=== PATIENT | male | born 1975 | race Caucasian/White ===

== ENCOUNTER → 2017-10-06 | Outpatient (CLI) | payer BC ==
--- NOTE | 2017-10-06 12:40 | RADIOLOGY REPORT (SQ) ---
EXAM DESCRIPTION: CT SOFT TISSUE NECK WITHOUT COMPLETED DATE/TIME: 10/06/2017 7:23 am REASON FOR STUDY: NEOPLASM OF UNCERTAIN BEHAVIOR OF CONNECTIVE AND OTHER SOFT TISSUE (D48.1) D48.1 NEOPLASM OF UNCERTAIN BEHAVIOR OF CONNCTV/SOFT TISS COMPARISON: None. TECHNIQUE: Noncontrast scanning from skull base through lung apices with review of bone, soft tissue and lung windows. Reconstructed coronal and sagittal MPR images reviewed. All images stored on PAC S. All CT scanners at this facility use dose modulation, iterative reconstruction, and/or weight based d osing when appropriate to reduce radiation dose to as low as reasonably achievable (ALARA). [facility]: Dose Right [facility]: CareDose [facility]: Dose Right [facility]: Teradose 4D [facility]: [employer] RADIATION DOSE: 21.6 mGy. LIMITATIONS: None. FINDINGS: SKULL BASE: In the posterior fossa, an 8 cm transverse by 4 cm AP arachnoid cyst is presen t, of with mild mass effect on the right cerebellar hemisphere. No posterior fossa midline shift. N o hydrocephalus. MAJOR SALIVARY GLANDS: No solid or cystic masses. No inflammatory changes. LYMPHADENOPATHY: No adenopathy. MUCOSAL MASSES OR ASYMMETRY: No mucosal masses or asymmetry. LARYNX/CORDS: No abnormal findings. LUNG APICES: Clear. BONES: Intact. THYROID: Normal size. No masses. PARANASAL SINUSES: Clear. OTHER: No other significant finding. IMPRESSION: NO SIGNIFICANT FINDING IN THE SOFT TISSUES OF THE NECK. INCIDENTAL FINDING OF A BENIGN APPEARING RIGHT POSTERIOR FOSSA ARACHNOID CYST TECHNICAL DOCUMENTATION: JOB ID: [id number] Quality ID # [id number]: Final reports with documentation of one or more dose reduction techniques (e.g., Au tomated exposure control, adjustment of the mA and/or kV according to patient size, use of iterative reconstruction technique) 2010 [employer]- All Rights Reserved
== END ==
LOC: RAD 07:08
PROVIDERS: ATTEND Family Medicine
DX: D48.1 Neoplasm of uncertain behavior of connective and other soft tissue (principal)
CPT/HCPCS: 70490

== ENCOUNTER 2018-10-25 13:12 | Emergency (ER) | payer BC ==
--- NOTE | 2018-10-25 14:40 | ER Document Report ---
ED GI/ - General Chief Complaint: Urinary Problem Stated Complaint: BACK PAIN Time Seen by Provider: 10/25/18 14:33 Mode of Arrival: Ambulatory Information source: Patient Notes: Patient is a 43-year-old male comes emergency room complaining of left flank pain and hematuria. Patient states that approximately 2 months ago he had onset of some hematuria. He went to his primary care doctor and they did a urine sample and sent for pathology and there was no blood in his urine. He also states that the Friday before they were out eating dinner when he had a sudden onset of severe left flank pain severe abdominal pain on the left side he could not find a position of comfort became slightly nauseated. He had his drive in the left head for a walk-in clinic. When he got to the clinic patient attempted to go inside and was 2:05 PM in the clinic closed at 2 PM. He got in the car to go to another clinic and on the way there the pain subsided so they decided not to go anywhere. He has had intermittent episodes ever since then of discomfort and having difficult time finding a position of comfort but it would last a short time and go away. This morning he had the same type of a presentation he now has the urge to like he has to urinate and when he goes eats only small amounts. He states that when he was [facility] and went to the restroom he ended up seeing blood in his underwear. The pain has gotten slightly better but he decided since there was now carmela blood in his underwear that he needed to have it checked out. He did state with the onset of pain he became somewhat sweaty mildly nauseous. He denies any previous history of kidney stones or urologic problems. He does state that he has had a history of genital herpes and genital warts but nothing has been active for quite some time. TRAVEL OUTSIDE OF THE [place] IN LAST 30 DAYS: No - HPI Patient complains to provider of: Abdominal pain, Dysuria, Flank pain, Hematuria , Urinary retention. No: Testicular pain, Vomiting Onset: This morning Timing/Duration: Sudden, Persistent, Worse Quality of pain: Sharp, Throbbing Severity at maximum: Severe Severity in ED: Moderate Pain Level: 3 Location: LLQ, Left flank Adult Front & Back Diagram: 1 - Area of discomfort to palpation 2 - Area of discomfort to percussion Sexual history: Active. denies: STD exposure Associated symptoms: Nausea, Urinary hesitancy, Urinary frequency, Urinary retention Exacerbated by: Denies Relieved by: Denies Similar symptoms previously: Yes Recently seen / treated by doctor: Yes Past Medical History - General Information source: Patient - Social History Smoking Status: Former Smoker Cigarette use (# per day): No Chew tobacco use (# tins/day): No Smoking Education Provided: No Frequency of alcohol use: Social Drug Abuse: None Occupation: owns [employer] Lives with: Family Family History: Reviewed & Not Pertinent Patient has suicidal ideation: No Patient has homicidal ideation: No Renal/ Medical History: Denies: Hx Peritoneal Dialysis - Immunizations Hx Diphtheria, Pertussis, Tetanus Vaccination: Yes Review of Systems - Review of Systems Constitutional: No symptoms reported EENT: No symptoms reported Cardiovascular: No symptoms reported Respiratory: No symptoms reported Gastrointestinal: No symptoms reported Genitourinary: See HPI, Burning, Dysuria, Frequency, Flank pain, Hematuria, Incontinence, Pain, Urgency, Retention Male Genitourinary: See HPI. denies: Testicular pain Musculoskeletal: No symptoms reported Skin: No symptoms reported Hematologic/Lymphatic: No symptoms reported Neurological/Psychological: No symptoms reported -: Yes All other systems reviewed and negative Physical Exam - Vital signs Vitals: Temp Pulse Resp BP Pulse Ox 98.4 F 78 18 169/97 H 100 10/25/18 13:20 10/25/18 13:20 10/25/18 13:20 10/25/18 13:20 10/25/18 13:20 Interpretation: Hypertensive - Notes Notes: PHYSICAL EXAMINATION: GENERAL: Patient is a well-nourished well-developed 43-year-old male who is in no apparent distress on physical exam today however he does appear to be uncomfortable. Still having a difficult time finding a position of comfort. HEAD: Atraumatic, normocephalic. NECK: Normal range of motion, supple without lymphadenopathy LUNGS: Breath sounds clear to auscultation bilaterally and equal. No wheezes rales or rhonchi. HEART: Regular rate and rhythm without murmurs ABDOMEN: Examination of patient's abdomen shows he has bowel sounds in all 4 quads. No tympany noted. Does have minimal amount of tenderness to ballottement on the left lower quadrant area. Also noted left lower CVA tenderness is noted to percussion. Rest of the abdominal exam is normal. Musculoskeletal: Normal range of motion, no pitting or edema. No cyanosis. NEUROLOGICAL: Normal speech, normal gait. Normal sensory, motor exams PSYCH: Normal mood, normal affect. SKIN: Warm, Dry, normal turgor, no rashes or lesions noted. Course - Re-evaluation Re-evalutation: 10/25/18 16:26 Patient was found to have a 2.5 mm stone in the distal UVJ with mild hydronephrosis and mild hydroureter. Patient was 100% relieved of discomfort and pain with the Toradol shot. At this time we will go ahead and send him home on some ketorolac tablets as well as little hydrocodone and some Phenergan. His lab work was normal so I am not going to place patient on any type of antibiotic currently. I am going to give him a referral to urology but since we do not have a urologist survey operations director and one that comes to the hospitalist for the known we will refer him to believe it is [facility] urology. - Vital Signs Vital signs: Temp Pulse Resp BP Pulse Ox 98.4 F 78 18 169/97 H 100 10/25/18 13:20 10/25/18 13:20 10/25/18 13:20 10/25/18 13:20 10/25/18 13:20 - Laboratory Result Diagrams: 10/25/18 14:45 10/25/18 14:45 Laboratory results interpreted by me: 10/25/18 10/25/18 10/25/18 14:45 14:45 14:45 Seg Neutrophils % 83.2 H Lymphocytes % 9.6 L Calcium 10.3 H Urine Blood SMALL H Discharge - Discharge Clinical Impression: Ureterolithiasis Hematuria Qualifiers: Hematuria type: other microscopic Qualified Code(s): R31.29 - Other microscopic hematuria; R31.2 - Other microscopic hematuria Condition: Stable Disposition: HOME, SELF-CARE Instructions: Kidney Stone ([facility]) Additional Instructions: As we discussed currently you do not need antibiotics for the presentation of this kidney stone. As we have explained the stone is just about ready to fall in the bladder but does not necessarily mean it is going to fall in the bladder immediately. As I have informed you kidney stones are anything but round and smooth and sometimes they can get hung up at the junction and still cause increased swelling of the area and backup of fluids into the kidney. If the pain medication does not completely keep the pain bearable return to ER at once for recheck. As I have indicated to you we do not have a urologist survey operations director and since you are under pain control currently and feel all right we can send you home with the pain medications. Should you have any concerns I would highly recommend that you follow-up with the urologist and I am giving you the group we referred to. If between now and the time of any appointment with urology you you have any concerns or increasing pain discomfort spike a fever return to ER at once for recheck. Prescriptions: Hydrocodone/Acetaminophen [Ocate 7.5-325 mg Tablet] 1 tab PO Q4 PRN #15 tablet PRN Reason: Promethazine HCl 25 mg PO Q4 PRN #15 tablet PRN Reason: Tamsulosin HCl [Flomax] 0.4 mg PO DAILY #15 cap.er.24h Forms: Elevated Blood Pressure Referrals: ALPA VIEIRA MD [Primary Care Provider] - Follow up as needed PRIYANKA VIDAL MD [NO LOCAL MD] - Follow up as needed
[2018-10-25 15:02] LABS: ABSOLUTE LYMPHOCYTES (AUTO) 0.8 10^3/uL (0.5-4.7); ABSOLUTE MONOCYTES (AUTO) 0.6 10^3/uL (0.1-1.4); ABSOLUTE NEUT (AUTO) 7.3 10^3/uL (1.7-8.2); BASOPHILS % (AUTO) 0.2 % (0-2); EOSINOPHILS % (AUTO) 0.4 % (0-6); HEMOGLOBIN 15.4 g/dL (13.5-17.0); LYMPHOCYTES % (AUTO) 9.6 % (13-45); MEAN CORPUSCULAR HEMOGLOBIN 32.3 pg (27.0-33.4); MEAN CORPUSCULAR VOLUME 92 fl (80-97); MONOCYTES % (AUTO) 6.6 % (3-13); PLATELET COUNT 263 10^3/uL (150-450); RED BLOOD COUNT 4.76 10^6/uL (4.35-5.55); RED CELL DISTRIBUTION WIDTH 12.6 % (11.5-14.0); SEGMENTED NEUTROPHILS % (AUTO) 83.2 % (42-78); TOTAL CELLS COUNTED % (AUTO) 100 %; WHITE BLOOD COUNT 8.8 10^3/uL (4.0-10.5)
[2018-10-25 15:04] LABS: APPEARANCE,URINE CLEAR; BILIRUBIN,URINE NEGATIVE (NEGATIVE); COLOR,URINE COLORLESS; GLUCOSE, URINE NEGATIVE (NEGATIVE); KETONES,URINE NEGATIVE (NEGATIVE); LEUKOCYTE ESTERASE,URINE NEGATIVE (NEGATIVE); NITRITE,URINE NEGATIVE (NEGATIVE); PROTEIN,URINE NEGATIVE (NEGATIVE); URINE SPECIFIC GRAVITY 1.004; UROBILINOGEN,URINE NEGATIVE mg/dL (<2.0)
[2018-10-25] MEDS ORDERED: KETOROLAC TROMETHAMINE 60 MG/2 ML SDV IM ONE (15:07)
[2018-10-25 15:21] LABS: ALANINE AMINOTRANSFERASE 66 U/L (21-72); ALKALINE PHOSPHATASE 73 U/L (38-126); ANION GAP 14 (5-19); ASPARTATE AMINO TRANSFERASE 44 U/L (17-59); BILIRUBIN,DIRECT 0.1 mg/dL (0.0-0.4); BILIRUBIN,TOTAL 0.6 mg/dL (0.2-1.3); BLOOD UREA NITROGEN 15 mg/dL (7-20); CALCIUM 10.3 mg/dL (8.4-10.2); CARBON DIOXIDE 27 mmol/L (22-30); CHLORIDE 103 mmol/L (98-107); GLUCOSE 96 mg/dL (75-110); POTASSIUM 4.2 mmol/L (3.6-5.0); SODIUM 144.4 mmol/L (137-145)
--- NOTE | 2018-10-25 16:12 | RADIOLOGY REPORT (SQ) ---
EXAM DESCRIPTION: CT ABD/PELVIS NO ORAL OR IV COMPLETED DATE/TIME: 10/25/2018 4:00 pm REASON FOR STUDY: left flank pain /hematuria COMPARISON: None. TECHNIQUE: CT scan of the abdomen and pelvis performed without intravenous or oral contrast. Images reviewed with lung, soft tissue, and bone windows. Reconstructed coronal and sagittal MPR images revi ewed. All images stored on PACS. All CT scanners at this facility use dose modulation, iterative reconstruction, and/or weight based d osing when appropriate to reduce radiation dose to as low as reasonably achievable (ALARA). [facility]: Dose Right [facility]: CareDose [facility]: Dose Right [facility]: Teradose 4D [facility]: [employer] RADIATION DOSE: CT Rad equipment meets quality standard of care and radiation dose reduction techniq ues were employed. CTDIvol: 8.3 mGy. DLP: 485 mGy-cm.mGy. LIMITATIONS: None. FINDINGS: LOWER CHEST: No significant findings. No nodules or infiltrates. NON-CONTRASTED LIVER, SPLEEN, ADRENALS: Evaluation limited by lack of IV contrast. No identified sign ificant masses. PANCREAS: No masses. No peripancreatic inflammatory changes. GALLBLADDER: No identified stones by CT criteria. No inflammatory changes to suggest cholecystitis. RIGHT KIDNEY AND URETER: No suspicious masses. Assessment limited by lack of IV contrast. No signif icant calcifications. No hydronephrosis or hydroureter. LEFT KIDNEY AND URETER: No suspicious masses. Assessment limited by lack of IV contrast. 2.5 mm serge culus calculus at the UV junction mild hydronephrosis and hydroureter. AORTA AND RETROPERITONEUM: No aneurysm. No retroperitoneal masses or adenopathy. BOWEL AND PERITONEAL CAVITY: No obvious masses or inflammatory changes. No free fluid. APPENDIX: Normal. PELVIS, BLADDER, AND ABDOMINAL WALL:Left inguinal hernia contains. Bladder unremarkable. BONES: No significant findings. OTHER: No other significant finding. IMPRESSION: Mild obstructive uropathy on the left secondary to a 2.5 mm calculus at the UV junction. COMMENT: Quality ID # [id number]: Final reports with documentation of one or more dose reduction techniques (e.g., Automated exposure control, adjustment of the mA and/or kV according to patient size, use of iterative reconstruction technique) TECHNICAL DOCUMENTATION: JOB ID: [id number] [employer]- All Rights Reserved Reading location - IP/workstation name: [email or web address]
[2018-10-25 16:59] VITALS: BP 123/83
== END 2018-10-25 16:58 | disposition home or self-care (01) ==
LOC: ER 13:12
DX: N20.1 Calculus of ureter (principal); R31.29 Other microscopic hematuria; M54.9 Dorsalgia, unspecified
CPT/HCPCS: 99284; 96372; 36415; 87086; 85025; 80053; 81001; 74176; J1885